=== PATIENT | male | born 1965 | race Caucasian/White ===

== ENCOUNTER 2017-09-16 02:29 | Emergency (ER) | payer SELFPAY ==
[~2017-09-16] VITALS: Ht 172.7 cm; Wt 64.0 kg
[2017-09-16 03:27] LABS: HEMOGLOBIN 14.7 g/dL (13.7-18.0); WHITE BLOOD COUNT 6.6 x10^3/uL (3.4-10)
[2017-09-16 03:40] LABS: ASPARTATE AMINO TRANSFERASE 23 U/L (15-37); BLOOD UREA NITROGEN 16 mg/dL (7-18)
[2017-09-16 03:43] LABS: ACETAMINOPHEN < 2 mcg/mL (10-30)
[2017-09-16 05:18] VITALS: BP 124/80
[2017-09-18] MEDS ORDERED: VENLAFAXINE (03:48)
[2017-09-18] MEDS ORDERED: ALPRAZOLAM (03:48)
== END 2017-09-16 05:28 | disposition home or self-care (01) ==
LOC: ED 05:22
DX: F32.9 Major depressive disorder, single episode, unspecified (principal); F20.9 Schizophrenia, unspecified; F15.10 Other stimulant abuse, uncomplicated
CPT/HCPCS: 36415; 80053; 80307; 80329; 85025; 99284; G0479; G0480